=== PATIENT | female | born 1970 | race African-American/Black ===

== ENCOUNTER 2018-11-27 08:32 | Emergency (ER) | payer OTHER ==
[2018-11-27 08:36] VITALS: BP 144/71; PULSE 76; TEMP 98.6; BMI 44.4
[2018-11-27] MEDS ORDERED: IBUPROFEN 400 MG TABLET (FP) PO ONE ×2 (09:00→09:01)
--- NOTE | 2018-11-27 09:31 | PDOC ---
History of Present Illness - General Chief Complaint: Pain Stated Complaint: RT HAND PAIN, FALL SUNDAY Time Seen by Provider: 11/27/18 09:04 History Source: Patient Exam Limitations: No Limitations Past History - Past Medical History Allergies/Adverse Reactions: Allergies Allergy/AdvReac Type Severity Reaction Status Date / Time No Known Allergies Allergy Verified 11/27/18 08:36 Home Medications: Ambulatory Orders NK [No Known Home Medication] 11/27/18 COPD: No - Surgical History Cholecystectomy: Yes - Suicide/Smoking/Psychosocial Hx Smoking Status: No Smoking History: Never smoked Number of Cigarettes Smoked Daily: 0 Information on smoking cessation initiated: No Hx Alcohol Use: No Drug/Substance Use Hx: No Substance Use Type: None *Physical Exam - Vital Signs Last Vital Signs Temp Pulse Resp BP Pulse Ox 98.6 F 76 19 144/71 99 11/27/18 08:35 11/27/18 08:35 11/27/18 08:35 11/27/18 08:35 11/27/18 08:35 - Physical Exam General Appearance: No: Apparent Distress Neck: positive: Supple Comments:: RUE pulses intact 11/27/18 09:34 Extremity: positive: Normal Capillary Refill, Other (+swelling and TTP along R wrist, pain with supination of wrist, no trauma to R elbow or shoulder noted, no snuffbox tenderness, no erythema, no warmth to joint) Integumentary: positive: Normal Color, Swelling. negative: Ecchymosis, Bruising Neurologic: positive: Alert, Normal Mood/Affect. negative: Numbness, Sensory Deficit Procedures - Splinting Splint Location: Right: Wrist Pre-Proc Neuro Vasc Exam: normal Hand-Made Type: orthoglass Splint Type: Yes: Volar Post-Proc Neuro Vasc Exam: normal Rodrigo Bandage: yes Sling: Yes Complications: No ED Treatment Course - RADIOLOGY Radiology Studies Ordered: Category Date Time Status FOREARM- RIGHT [RAD] Stat Radiology 11/27/18 09:09 Ordered WRIST W/HAND-RIGHT* [RAD] Stat Radiology 11/27/18 09:09 Ordered - Medications Given in the ED: ED Medications Discontinued Medications Generic Name Dose Route Start Last Admin Trade Name Freq PRN Reason Stop Dose Admin Ibuprofen 800 mg 11/27/18 09:00 11/27/18 09:02 Motrin - PO 11/27/18 09:01 800 mg ONCE ONE Administration Medical Decision Making - Medical Decision Making 48 y/o F with no sig pmh presents with waking up with R wrist pain and swelling today. Mentions had mechanical fall 3 days ago, but fell on her L side. Does not recall any trauma occurring on the R side. Denies fever, neck pain, numbness /tingling. Plan: Motrin, xray to r/o fracture 11/27/18 09:30 xray images reviewed - no fracture noted Currently not suspicious for gout/pseudogout, septic joint, compartment syndrome D/W Dr. Coles - recommend volar splint, f/u with ortho Patient also provided sling for comfort 11/27/18 09:59 *DC/Admit/Observation/Transfer Diagnosis at time of Disposition: Wrist injury Qualifiers: Encounter type: initial encounter Laterality: right Qualified Code(s): S69.91XA - Unspecified injury of right wrist, hand and finger(s), initial encounter - Discharge Dispostion Disposition: HOME Condition at time of disposition: Stable Decision to Admit order: No - Referrals Referrals: Waqas Ramsey DO [Staff Physician] - Call tomorrow - Patient Instructions Printed Discharge Instructions: DI for Wrist Pain Additional Instructions: Thank you for choosing [facility]. It was a pleasure taking care of you. You may take Motrin 600 mg every 6 hours by mouth as needed for mild to moderate pain. Take Motrin with food. Use the sling as needed for comfort Keep the splint dry Follow-up with orthopedic doctor in 2 days Return to the Emergency Department if your symptoms worsen or persist or have other concerning symptoms. - Post Discharge Activity
== END 2018-11-27 10:15 | disposition home or self-care (01) ==
LOC: JERFT 08:32
PROC: 2W3CX1Z Immobilization of Right Lower Arm using Splint (ICD-10-PCS; principal; 2018-11-27)
DX: S69.81XA Other specified injuries of right wrist, hand and finger(s), initial encounter (principal); W19.XXXA Unspecified fall, initial encounter; Y93.89 Activity, other specified; Y92.89 Other specified places as the place of occurrence of the external cause; Y99.8 Other external cause status
CPT/HCPCS: 29125; 73090-TC-RT-FY; 73110-TC-RT-FY; 73130-TC-RT-FY; 99281-25

== ENCOUNTER 2022-03-27 10:32 | Emergency (ER) | payer OTHER ==
[2022-03-27 11:08] VITALS: TEMP 98.4; BMI 41.9
[2022-03-27] MEDS ORDERED: ACETAMINOPHEN 500 MG TABLET (FP) PO ONE (12:26)
[2022-03-27] MEDS ORDERED: LIDOCAINE 5% TOPICAL PATCH TP ONE (12:26)
[2022-03-27] MEDS ORDERED: ACETAMINOPHEN 500 MG TABLET (FP) ONE (12:59)
[2022-03-27] MEDS ORDERED: LIDOCAINE 5% TOPICAL PATCH ONE (12:59)
[2022-03-27] MEDS ORDERED: oxyCODONE HCL 5 MG TABLET PO ONE (13:43)
[2022-03-27] MEDS ORDERED: oxyCODONE HCL 5 MG TABLET ONE (13:54)
[2022-03-27 18:22] LABS: URINE APPEARANCE CLEAR; URINE BILIRUBIN NEGATIVE (NEGATIVE); URINE COLOR YELLOW; URINE GLUCOSE (UA) NEGATIVE (NEGATIVE); URINE KETONE TRACE (NEGATIVE); URINE LEUK ESTERASE NEGATIVE (NEGATIVE); URINE NITRITE NEGATIVE (NEGATIVE); URINE PROTEIN NEGATIVE (NEGATIVE); URINE UROBILINOGEN 0.2 mg/dL (0.2-1.0)
[2022-03-27 19:14] VITALS: BP 139/80; PULSE 79; RESP 20
[2022-03-27] MEDS ORDERED: LIDOCAINE PATCH REMOVAL MC SCH (22:00)
== END 2022-03-27 19:14 | disposition home or self-care (01) ==
LOC: JER 10:32
DX: M54.50 Low back pain, unspecified (principal)
CPT/HCPCS: 72100-TC-FY; 72131-TC; 81003; 84703; 87086; 99285-25